=== PATIENT | male | born 1965 | race Caucasian/White ===

== ENCOUNTER → 2017-10-17 | Outpatient (CLI) | payer BC ==
--- NOTE | 2017-10-17 08:20 | MRI ---
EXAM DESCRIPTION: Cervical Spine CLINICAL HISTORY: 52 years, Male, CERVICAL DISC DEGENERATION left hand numbness COMPARISON: FINDINGS: Sagittal and axial sequences. , Bone marrow and cord abnormal signal characteristics. Straightening compatible muscular spasm. Minimal right-sided bulge C2-3. At C3-4 right-sided protruding disc osteophyte, about 3 mm, almost completely effaces the right subarachnoid space. Also component left-sided disc osteophyte slightly flattens the thecal sac. At C4-5 disc and facets within normal limits. Slight narrowing C5-6 with right lateral protruding disc osteophyte about 3.5 mm. This flattens the thecal sac and probably impinges slightly on the right side of the cord. C6-7 narrowing with diffuse bulging disc osteophyte slightly asymmetric to the right. Right-sided thecal sac is severely flattened. There is also component however extending to the left exit foramen and lateral recess possibly impinging on the exiting left C7 root. Small right lateral protruding disc osteophyte slightly flattens the thecal sac at C7-T1. IMPRESSION: 1. Moderately severe disc disease from C3-4 through C7-T1, as discussed above 2. Left hand symptoms may be arising from C6-7 with is a diffuse bulging disc osteophyte. The disc osteophyte presses on the left foraminal region and may impinge on the exiting C7 root 3. Moderately severe right-sided disc osteophyte complexes C3-4 and to less degree C5-6 and C7-T1 Electronically signed by: Hector Aquino MD 10/17/2017 8:19 AM DENTAL PRACTICE MANAGER
== END | disposition home or self-care (01) ==
LOC: MRI 14:20
PROVIDERS: ATTEND Family Medicine
DX: M47.892 Other spondylosis, cervical region (principal)

== ENCOUNTER → 2018-01-26 | Outpatient (CLI) | payer BC ==
--- NOTE | 2018-01-26 08:32 | RAD ---
EXAM DESCRIPTION: Elbow,Right 3 Views CLINICAL HISTORY: ELBOW PAIN COMPARISON: None Available. TECHNIQUE: AP, Lateral, and Oblique FINDINGS: Three-view right elbow shows no fracture or dislocation. No displacement of the distal humeral fat pads to suggest the presence of joint effusion. There is no bone lesion. Small enthesophyte at the olecranon is noted. Otherwise no significant arthritic changes. There is no radiopaque foreign body. IMPRESSION Negative for fracture or dislocation. Electronically signed by: Vasu Goodman MD 01/26/2018 8:31 AM [facility]
== END ==
LOC: RAD 07:56
PROVIDERS: ATTEND Orthopaedic Surgery
DX: M25.521 Pain in right elbow (principal)

== ENCOUNTER 2018-02-03 05:40 | Day surgery (SDC) | payer BC ==
[2018-02-03] MEDS ORDERED: LACTATED RINGERS 1,000 ML ONE ×2 (06:00→10:46)
[2018-02-03] MEDS ORDERED: SODIUM CHL 0.9% 100ML MINI-BAG 100 ML IVPB ONE (06:00)
[2018-02-03] MEDS ORDERED: ceFAZolin SODIUM 1 GM VIAL ONE ×2 (06:01→06:51)
[2018-02-03] MEDS ORDERED: LIDOCAINE 2 % GEL 5 ML TUBE TOP ONE (06:22)
[2018-02-03] MEDS ORDERED: fentaNYL CITRATE INJ 50 MCG/ML AMP ONE (06:22)
[2018-02-03] MEDS ORDERED: LACTATED RINGERS 1,000 ML BAG IV ONE ×2 (06:25→10:40)
[2018-02-03] MEDS ORDERED: BUPIVACAINE 0.25% W/EPI 50 ML VIAL INJ ONE (06:50)
[2018-02-03] MEDS ORDERED: VANCOMYCIN HCL INJ 1,000 MG VIAL IVPB ONE (06:51)
[2018-02-03] MEDS ORDERED: LIDOCAINE 1% W/ EPINEPHRINE 20 ML VIAL INJ ONE (06:51)
[2018-02-03] MEDS ORDERED: PROPOFOL 200 MG/20 ML VIAL IV ONE (10:00)
[2018-02-03] MEDS ORDERED: LIDOCAINE 1% 10 ML VIAL INJ ONE (10:00)
[2018-02-03] MEDS ORDERED: ONDANSETRON INJ 4 MG/2 ML VIAL IV ONE (10:00)
[2018-02-03] MEDS ORDERED: DEXAMETHASONE INJ 10 MG/ML VIAL IV ONE (10:00)
[2018-02-03] MEDS ORDERED: MORPHINE SULFATE INJ 10 MG/ML VIAL ONE (10:14)
[2018-02-03] MEDS ORDERED: MORPHINE SULFATE INJ 10 MG/ML VIAL IV ONE (10:15)
[2018-02-03] MEDS ORDERED: LACTATED RINGERS 1,000 ML IVS ONE (10:40)
[2018-02-03 11:12] VITALS: O2SAT 100
[2018-02-03 11:41] VITALS: BP 130/68; TEMP 97.6
--- NOTE | 2018-02-06 11:34 | OP ---
DATE OF PROCEDURE: 02/03/18 PREOPERATIVE DIAGNOSIS: 1. Ulnar nerve compression. POSTOPERATIVE DIAGNOSIS: 1. Ulnar nerve compression. PROCEDURE: 1. Ulnar nerve transposition. SURGEON: Jerry Lyons MD. MAT CUTTER: Maynor Gruber CST, SA-C. ANESTHESIA: General. COMPLICATIONS: None. FINDINGS: 1. Subluxation of the ulnar nerve along the medial epicondyle. 2. Flattening of the ulnar nerve. INDICATION: Mr. Maynard a long history of symptoms associated with compression of the ulnar nerve. Because of the symptoms, he has requested operative intervention. After discussing the cause of this and the risks, benefits and alternatives to operative intervention, he gave informed consent. PROCEDURE: The patient was brought to the Operating Room and placed in the supine position. General anesthesia was induced and the patient's arm was sterilely prepped and draped. An incision was made in the midline between the medial epicondyle and the olecranon. Dissection was carried down and the ulnar nerve was identified proximally. Vessel loop was passed around the ulnar nerve to manipulate the nerve atraumatically. From proximal to distal, the nerve was released. Once the nerve was fully freed, it was transposed subcutaneously along the medial aspect. The wound was very thoroughly irrigated. The subcutaneous tissues were sewn to the medial epicondylar periosteum. Care was taken to avoid any compression of the nerve and the nerve was checked and found to be free of any adhesional compression. Following that, the wound was again thoroughly irrigated and closed with combination of running and interrupted subcuticular Nylon suture. Splint was placed. The patient was awoken from anesthesia and taken to Recovery. POSTOPERATIVE PLAN: He will remain in the splint, but has been encouraged to do range of motion of the digits and the wrist. He will followup with us two days. We will begin range of motion of the elbow at that time. #[id number] [facility]
== END 2018-02-03 11:35 | disposition home or self-care (01) ==
LOC: AMB 05:40
PROVIDERS: ATTEND Orthopaedic Surgery
DX: G56.21 Lesion of ulnar nerve, right upper limb (principal); I10 Essential (primary) hypertension; K21.9 Gastro-esophageal reflux disease without esophagitis; Z87.891 Personal history of nicotine dependence; Z79.899 Other long term (current) drug therapy
CPT/HCPCS: 01710; 64718; 87070; J0690; J1100; J2270; J2405; J3010; J3370; J3490; J7050; J7120

== ENCOUNTER → 2020-12-19 | Outpatient (CLI) | payer BC | LOC: GMAJ 14:16 | PROVIDERS: ATTEND Family Medicine | DX: Z12.5 Encounter for screening for malignant neoplasm of prostate (principal); I10 Essential (primary) hypertension ==

== ENCOUNTER 2021-01-05 05:56 | Day surgery (SDC) | payer BC ==
[2021-01-05] MEDS ORDERED: LACTATED RINGERS 1,000 ML ONE (06:46)
[2021-01-05] MEDS ORDERED: PROPOFOL 200 MG/20 ML VIAL IV ONE (07:00)
[2021-01-05] MEDS ORDERED: LIDOCAINE 1% 10 ML VIAL INJ ONE (07:00)
[2021-01-05] MEDS ORDERED: LACTATED RINGERS 1,000 ML IVS ONE (07:40)
[2021-01-05] MEDS ORDERED: LACTATED RINGERS 800 ML IVS ONE (08:29)
[2021-01-05 08:46] VITALS: TEMP 97.8
--- NOTE | 2021-01-05 08:58 | OP ---
DATE OF PROCEDURE: 01/05/21 PREOPERATIVE DIAGNOSIS: 1. First screening colonoscopy. POSTOPERATIVE DIAGNOSIS: 1. Two small colon polyps. PROCEDURE: 1. Colonoscopy with polyp excision. SURGEON: Jose Pavon MD ANESTHESIA: General, Everardo Urbano CRNA. FINDINGS: There was a polyp in the proximal transverse colon, approximately 2 mm, and another in the distal rectum about 2.2 mm. They were completely excised. No other abnormality seen. PROCEDURE: General anesthesia was induced in the lateral position. Digital rectal exam was normal. The colonoscope was inserted. There were no significant hemorrhoids or anal tags. No evidence of fissure. The scope was passed all the way to the cecum as identified by the appendiceal orifice and ileocecal valve. Upon withdrawal, the mucosal surfaces appeared normal. The prep was adequate. As we got around the turn of the proximal transverse colon, we saw one small polyp. It was excised with the forceps without difficulty. The remainder of the exam was normal until we got to the distal rectum where we saw a more pronounced polyp right in the distal rectum at approximately 8 cm. This was also completely excised with forceps. He tolerated the procedure and was awakened and taken to Recovery to be discharged. #[id number] cc: Jose Faust MD [facility]
[2021-01-05 09:29] VITALS: BP 129/77; O2SAT 97
== END 2021-01-05 09:05 | disposition home or self-care (01) ==
LOC: AMB 05:56
PROVIDERS: ATTEND Surgery
DX: Z12.11 Encounter for screening for malignant neoplasm of colon (principal); D12.3 Benign neoplasm of transverse colon; D12.8 Benign neoplasm of rectum; K63.89 Other specified diseases of intestine; K21.9 Gastro-esophageal reflux disease without esophagitis; I10 Essential (primary) hypertension; Z79.899 Other long term (current) drug therapy
CPT/HCPCS: 00812; 45380; J3490; J7120